=== PATIENT | male | born 1950 | race Caucasian/White ===

== ENCOUNTER 2017-11-16 09:28 | Day surgery (SDC) | payer MEDICARE, OTHER ==
[2017-11-16] MEDS ORDERED: Lactated Ringers 1,000 ML IV ONE (09:29)
[2017-11-16 10:24] LABS: Hematocrit 44.3 % (42-50); Hemoglobin 14.6 gm/dl (12.5-18.0); Mean Cell Volume 84.2 fl (78-100); Mean Corpuscular Hemoglobin 27.8 pg (26-32); Mean Platelet Volume 8.9 fl (6-9.5); Platelet Count 282 K/mm3 (150-450); Red Blood Count 5.26 M/mm3 (4.1-5.6); Red Cell Distribution Width 13.8 % (11.5-14.0); White Blood Count 14.4 K/mm3 (4.0-10.5)
[2017-11-16 10:40] LABS: INR 1.1 (0.8-3.0)
[2017-11-16 10:43] LABS: PTT 27.8 SECONDS (24.1-36.1)
== END 2017-11-16 11:20 | disposition home or self-care (01) ==
LOC: SDC-PAIN 09:28
PROVIDERS: ATTEND Internal Medicine
DX: D72.829 Elevated white blood cell count, unspecified (principal)
CPT/HCPCS: 36415; 85027; 85610; 85730

== ENCOUNTER 2018-01-04 12:41 | Day surgery (SDC) | payer MEDICARE, OTHER ==
[2018-01-04] MEDS ORDERED: DIPRIVAN 200 MG/20 ML IV ONE (12:42)
[2018-01-04] MEDS ORDERED: Xylocaine 1% Vial 30 ML PF IJ ONE (12:42)
[2018-01-04] MEDS ORDERED: DEXAMETHASONE 10 MG/ML VIAL PF IJ ONE (12:42)
[2018-01-04 13:55] LABS: Hematocrit 40.9 % (42-50); Hemoglobin 13.9 gm/dl (12.5-18.0); Mean Cell Volume 82.8 fl (78-100); Mean Corpuscular Hemoglobin 28.1 pg (26-32); Mean Platelet Volume 9.3 fl (6-9.5); Platelet Count 236 K/mm3 (150-450); Red Blood Count 4.94 M/mm3 (4.1-5.6); Red Cell Distribution Width 13.7 % (11.5-14.0); White Blood Count 8.9 K/mm3 (4.0-10.5)
[2018-01-04 14:18] LABS: INR 1.12 (0.8-3.0)
[2018-01-04 14:21] LABS: PTT 24.2 SECONDS (24.1-36.1)
[2018-01-04] MEDS ORDERED: Lactated Ringers 1,000 ML IV ONE (14:53)
--- NOTE | 2018-01-04 16:28 | XRAY ---
Indication: Right L4 ANTHONY. Intraoperative fluoroscopy was provided for 22 seconds. Single digital spot image submitted for interpretation demonstrates posterior spinal needle tip projecting over the right L4-L5 facet. Correlate with intraoperative findings/report.
--- NOTE | 2018-01-04 16:40 | XRAY ---
22 seconds fluoroscopy time in surgery for right L4 ANTHONY.
--- NOTE | 2018-01-05 08:38 | OP ---
DATE OF PROCEDURE: 01/04/2018 1508 SURGEON: Jovan Ireland D.O. PREOPERATIVE DIAGNOSES: Degenerative lumbar spine disease, lumbar spondylosis. POSTOPERATIVE DIAGNOSES: Degenerative lumbar spine disease, lumbar spondylosis. PROCEDURE PERFORMED: Right L4 epidural steroid injection under fluoroscopic guidance. DESCRIPTION OF PROCEDURE: The patient was taken to the operating room and laid in the prone position on the table. Skin over the injection site was prepped and draped in sterile fashion. Under fluoroscope bony anatomy at the targeted injection site was visualized. Induction agent was given as per anesthesia while vital signs were monitored. Local anesthetic agent was introduced to anesthetize the skin in the subcutaneous tissue through injection site. Under fluoroscopic guidance a #22-gauge standard spinal needle was advanced into the target epidural space. Local anesthetic agent used is 4 cc of 1% preservative-free lidocaine. The medication used for this epidural steroid injection is preservative-free dexamethasone 2 cc was injected into each of the target epidural space. While the needle was being removed normal saline was simultaneously infiltrated to avoid sterile needle tract. Skin was cleansed with alcohol and then a bandage was applied. The preoperative pain level is 10 out of 10 and postoperative pain level is 0 out of 10. No complications or adverse consequences were observed. The patient was returned to the holding area until stabilized before discharge to home. The patient will be followed up within ten days after the injection for reevaluation.
== END 2018-01-04 15:50 | disposition home or self-care (01) ==
LOC: SDC-PAIN 12:41
PROVIDERS: ATTEND Internal Medicine
DX: M96.1 Postlaminectomy syndrome, not elsewhere classified (principal); M51.36 Other intervertebral disc degeneration, lumbar region; M54.5 Low back pain; M54.16 Radiculopathy, lumbar region
CPT/HCPCS: 36415; 64483; 72020; 77003; 85027; 85610; 85730; J2001; J2704; Q9967; J1100

== ENCOUNTER 2018-07-26 09:17 | Day surgery (SDC) | payer MEDICARE, OTHER ==
[2018-07-26] MEDS ORDERED: DIPRIVAN 200 MG/20 ML IV ONE (09:18)
[2018-07-26] MEDS ORDERED: Depo-Medrol 40 MG/ML IM ONE (09:18)
[2018-07-26] MEDS ORDERED: Xylocaine-Mpf 2% 5 Ml Vial IJ ONE (09:18)
[2018-07-26 11:03] LABS: INR 1.18 (0.8-3.0)
[2018-07-26] MEDS ORDERED: Lactated Ringers 1,000 ML IV ONE (14:50)
--- NOTE | 2018-07-26 16:02 | XRAY ---
9 seconds fluoroscopy time in surgery for L4-5 MBB.
--- NOTE | 2018-07-27 04:18 | XRAY ---
Indication: Bilateral L4-S1 MBB. Comparison: Right L4 epidural steroid injection. Intraoperative fluoroscopy time was utilized for 9 seconds. 2 posterior C-arm images of the lower lumbar spine were obtained. Posterior spinal needle tips are seen projected over the expected course of the left and right L4-S1 nerve roots. Correlate with intraoperative findings/report.
== END 2018-07-26 11:45 | disposition home or self-care (01) ==
LOC: SDC-PAIN 09:17
PROVIDERS: ATTEND Psychiatry & Neurology Pain Medicine
DX: M48.8X6 Other specified spondylopathies, lumbar region (principal)
CPT/HCPCS: 36415; 64493; 64494; 72020; 76000; 85610; J1030; J2704

== ENCOUNTER 2018-11-06 22:29 | Emergency (ER) | payer MEDICARE, OTHER ==
[2018-11-06] MEDS ORDERED: HYDROCODONE-ACETAMIN 2.5-108/5 ML SOLUTION PO STA (23:00)
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
[2018-11-06] MEDS ORDERED: HYDROCODONE-ACETAMIN 2.5-108/5 ML SOLUTION ONE (23:06)
[2018-11-06 23:16] LABS: Lactic Acid 1.6 (0.4-2.0); VBG BASE EXCESS 8.5 (-2.0-2.0); VBG CARBOXYHEMOGLOBIN 2.5 % T HGB (0.0-6.9); VBG HCO3- 33.4 meq/L (22-28); VBG HEMOGLOBIN 10.7; VBG POTASSIUM 4.4 (3.5-5.1); VBG pH 7.46 (7.32-7.42)
[2018-11-06 23:25] LABS: BASOPHIL % 0.3 % (0.0-0.4); Basophil (Absolute #) 0.04 (0-0.4); Eosinophil % 0.4 % (0.00-5.0); Eosinophil (Absolute #) 0.06 (0-0.5); Granulocyte Absolute (ANC) 11.52 (1.4-6.9); Granulocytes % 85.8 % (36.0-66.0); Hematocrit 31.6 % (42-50); Hemoglobin 10.1 gm/dl (12.5-18.0); Lymphocytes % 8.2 % (24.0-44.0); Mean Cell Volume 90.5 fl (78-100); Mean Corpuscular Hemoglobin 28.9 pg (26-32); Mean Platelet Volume 8.4 fl (6-9.5); Monocyte (Absolute #) 0.71 (0.0-1.3); Monocytes % 5.3 % (0.0-12.0); Platelet Count 208 K/mm3 (150-450); Red Blood Count 3.49 M/mm3 (4.1-5.6); Red Cell Distribution Width 13.1 % (11.5-14.0); White Blood Count 13.4 K/mm3 (4.0-10.5)
[2018-11-06 23:31] LABS: INR 1.33 (0.8-3.0); PROTIME 15.5 SECONDS (8.83-12.87)
[2018-11-06 23:57] LABS: INFLUENZA A NEGATIVE (NEGATIVE); INFLUENZA B NEGATIVE (NEGATIVE); RESPIRATORY SYNCTIAL VIRUS NEGATIVE (Negative)
[2018-11-07] MEDS ORDERED: ROCEPHIN 1 Gm-D5w 50 ml Bag** 1 G/50 ML IVPB IV STA (01:31)
[2018-11-07] MEDS ORDERED: ROCEPHIN 1 Gm-D5w 50 ml Bag** 1 G/50 ML IVPB IV ONE (01:33)
[2018-11-07 02:16] VITALS: BP 172/72; PULSE 91; O2SAT 97
--- NOTE | 2018-11-07 08:52 | XRAY ---
Indication: Short of breath, cough, and fever. Status post bronchoscopy with biopsy. Multiple contiguous axial images obtained through the chest without contrast. Comparison: None Mild pulmonary emphysema. Right middle lobe air space disease with patchy consolidations. Posterior right upper lobe noncalcified micronodules, largest 6 mm. Left lower lobe calcified granuloma. Mild bibasilar atelectasis/scarring. No effusion. Heart is not enlarged with tiny pericardial effusion/thickening. Aorta minimally atherosclerotic without aneurysm. Subcarinal and left perihilar calcified nodes. No pathologic mediastinal lymphadenopathy. Bony thorax intact with flowing osteophytes throughout the spine. Limited upper abdomen demonstrates mild fatty liver, hepatic/splenic calcified granulomas, and cholecystectomy clips. Also benign appearing right adrenal calcifications unchanged with respect to CT abdomen February 12, 2009. Impression: 1. Right middle lobe airspace disease with patchy consolidations. Rule out pneumonia. 2. Right upper lobe noncalcified micronodules possibly granulomatous as there is evidence for old granulomatous disease elsewhere. Comparison studies would be of benefit if performed elsewhere. 3. Incidental mild fatty liver and benign appearing right adrenal calcifications. Comment: Preliminary interpretation was made by [facility]. No critical discrepancy. CT DI 21.12
== END 2018-11-07 02:16 | disposition home or self-care (01) ==
LOC: ED 22:29
DX: J18.9 Pneumonia, unspecified organism (principal); J44.9 Chronic obstructive pulmonary disease, unspecified; I10 Essential (primary) hypertension; R55 Syncope and collapse; Z79.01 Long term (current) use of anticoagulants; Z79.899 Other long term (current) drug therapy; Z86.73 Personal history of transient ischemic attack (TIA), and cerebral infarction without residual deficits
CPT/HCPCS: 36415; 71250; 82805; 83605; 83880; 84484; 85025; 85610; 87040; 87631; 93005; 93041; 96365; 99285; J0696; A9270-GY

== ENCOUNTER 2020-03-10 21:57 | Emergency (ER) | payer MEDICARE, OTHER ==
[2020-03-10] MEDS ORDERED: TORAdol 30 mg Injection IV ONE (22:04)
[2020-03-10] MEDS ORDERED: Sodium Chloride 0.9% 1000 ML 1,000 ML IV STA (22:04)
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
[2020-03-10] MEDS ORDERED: Sodium Chloride 0.9% 1000 ML 1,000 ML ONE (22:30)
[2020-03-10] MEDS ORDERED: TORAdol 30 mg Injection ONE (22:30)
[2020-03-10 22:36] LABS: Absolute Neutrophil Ct (ANC) 9.22 (1.4-6.9); BASOPHIL % 0.3 % (0.0-0.4); Basophil (Absolute #) 0.04 (0-0.4); Eosinophil (Absolute #) 0 (0-0.5); Hematocrit 36.7 % (42-50); Hemoglobin 11.5 gm/dl (12.5-18.0); Lymphocyte (Absolute #) 0.95 (1.0-4.6); Lymphocytes % 8.2 % (24.0-44.0); Mean Cell Volume 85.7 fl (78-100); Mean Corpuscular Hemoglobin 26.9 pg (26-32); Mean Corpuscular Hgb Concent. 31.3 g/dl (32-36); Mean Platelet Volume 8.4 fl (7.5-11.0); Monocyte (Absolute #) 1.35 (0.0-1.3); Monocytes % 11.7 % (0.0-12.0); Neutrophil % 79.8 % (36.0-66.0); Platelet Count 263 K/mm3 (150-450); Red Blood Count 4.28 M/mm3 (4.1-5.6); Red Cell Distribution Width 13.1 % (11.5-14.0); White Blood Count 11.6 K/mm3 (4.0-10.5)
[2020-03-10 22:52] LABS: Appearance CLEAR (CLEAR); Bacteria RARE /HPF (NEGATIVE); Bilirubin NEGATIVE (NEGATIVE); Blood SMALL Ery/ul (0-5); Glucose NEGATIVE (NEGATIVE); Ketones NEGATIVE (NEGATIVE); Leukocyte Esterase NEGATIVE (NEGATIVE); Mucus SLIGHT /HPF (NEGATIVE); Nitrite NEGATIVE (NEGATIVE); Protein,Urine Dip 100 (Negative); Specific Gravity 1.016 (1.005-1.025); Urobilinogen 4 mg/dL (0-1)
[2020-03-10 23:04] LABS: ALBUMIN 4.1 g/dL (3.5-5.0); ALKALINE PHOSPHATASE 90 U/L (38-126); ANION GAP 14.1 MEQ/L (5-15); BLOOD UREA NITROGEN 16 mg/dL (9-20); CHLORIDE 95 mmol/L (98-107); Calcium 9.3 mg/dL (8.4-10.2); Carbon Dioxide 30 mmol/L (22-30); Creatinine 1 1.07 mg/dL (0.66-1.25); Glucose 128 mg/dL (74-106); Potassium 4.4 mmol/L (3.5-5.1); SGOT/AST 20 U/L (17-59); SGPT/ALT 18 U/L (0-50); SODIUM 134 mmol/L (137-145); Total Protein 7.4 g/dL (6.3-8.2)
[2020-03-10 23:17] LABS: LIPASE < 10 U/L (23-300)
[2020-03-11] MEDS ORDERED: MORPHINE SULFATE 4 MG INJ IV ONE (00:05)
[2020-03-11] MEDS ORDERED: MORPHINE SULFATE 4 MG INJ ONE (00:06)
[2020-03-11 00:31] LABS: INR 2.25 (0.8-3.0); PROTIME 25.6 SECONDS (8.83-12.87)
--- NOTE | 2020-03-11 08:57 | XRAY ---
Indication: Bilateral flank pain. Fever. Multiple contiguous images obtained through the abdomen and pelvis without contrast as ordered. Comparison: February 12, 2009. Lung bases demonstrates stable left base calcified granuloma and minimal bibasilar fibrosis/scarring. No infiltrate or effusion. Heart is not enlarged. Images through the pelvis again degraded by beam artifact from multiple bilateral pelvic fixation hardware and right hip arthroplasty. Noncontrasted stomach and bowel loops nonobstructed. Normal appendix. There are scattered colonic diverticulosis throughout the left hemicolon. No free fluid/air. Interval cholecystectomy. Inferior right lobe of the liver demonstrates dropped cholecystectomy clip with tiny 1.6 cm fluid collection and faint calcification presumed postsurgical. Spleen again demonstrates a few calcified granulomas. Stable right adrenal microcalcification favored to be benign given stability over the years. Remaining liver, pancreas, spleen, adrenal glands, kidneys, ureters, and bladder appear unremarkable for noncontrast exam. There remains mild scattered aortoiliac calcifications without AAA. Osseous structures intact again mild degenerative changes throughout the thoracolumbar spine. Impression: 1. Again old bilateral pelvic bone fractures and right hip arthroplasty with hardware beam artifact. 2. Interval cholecystectomy. Cholecystectomy clip with tiny fluid collection and faint calcification inferior right lobe liver presumed postsurgical. 3. Colonic diverticulosis without diverticulitis. 4. Stable benign right adrenal microcalcification and evidence for old granulomatous disease. Comment: Preliminary interpretation was made by [facility]. No critical discrepancy.
--- NOTE | 2020-03-11 09:01 | XRAY ---
Indication: Short of breath. Current Coumadin therapy for left leg DVT. Comparison: November 28, 2017. Portable chest now demonstrates minimal bibasilar atelectasis/scarring with stable left base calcified granuloma. Heart is not enlarged. Bony thorax intact again with old left clavicle fracture. No acute findings. Comment: Preliminary interpretation was made by [facility]. No critical discrepancy.
[2020-03-11 12:36] VITALS: BP 165/67; PULSE 76; O2SAT 99
== END 2020-03-11 13:10 | disposition short-term general hospital (02) ==
LOC: ED 21:57
DX: R10.9 Unspecified abdominal pain (principal); R06.02 Shortness of breath; T14.8XXA Other injury of unspecified body region, initial encounter
CPT/HCPCS: 36000; 36415; 71045; 74176; 80053; 81001; 83605; 83690; 84484; 85025; 85610; 85730; 87040; 87086; 93005; 96360; 96361; 96374; 96375; 99285; J1885; J2270

== ENCOUNTER 2022-02-17 12:30 | Day surgery (SDC) | payer MEDICARE, OTHER ==
[2022-02-17] MEDS ORDERED: Sodium Chloride 0.9(Preservative Free) 10 ML IJ ONE (12:31)
[2022-02-17] MEDS ORDERED: Depo-Medrol 40 MG/ML IM ONE (12:31)
[2022-02-17] MEDS ORDERED: DIPRIVAN 200 MG/20 ML IV ONE (13:15)
--- NOTE | 2022-02-17 14:57 | XRAY ---
Indication: Right L3-L5 transforaminal ANTHONY. Intraoperative fluoroscopy provided for 32 seconds. 4 digital spot images submitted for interpretation demonstrates posterior needle tips projecting over the expected right L3 and L4 nerve roots. Small amount of contrast injected for needle tip placement. Correlate with intraoperative findings/report.
--- NOTE | 2022-02-17 14:59 | XRAY ---
32 seconds fluoroscopy time in surgery for right L3-L5 transforaminal ANTHONY.
[2022-02-17] MEDS ORDERED: Lactated Ringers 1,000 ML IV ONE (15:13)
== END 2022-02-17 13:39 | disposition home or self-care (01) ==
LOC: SDC-PAIN 12:30
PROVIDERS: ATTEND Psychiatry & Neurology Pain Medicine
DX: M54.16 Radiculopathy, lumbar region (principal); Z79.899 Other long term (current) drug therapy
CPT/HCPCS: 64483; 64484; 72100; 77003; J1030; J2704; Q9966

== ENCOUNTER 2024-04-17 07:00 | Day surgery (SDC) | payer MEDICARE, OTHER ==
[~2024-04-17 07:00] MED LIST: BETADINE 5% OPHTHALMIC 30 ML OP ONE; MOXIFLOXACIN 4 MG/0.8 ML VIAL IO ONE; TRIAMCINOLONE 15 MG/ML INJ INTRAOP ONE
[2024-04-17] MEDS ORDERED: Epinephrine Preservative Free 1 MG/ML IJ ONE (07:01)
[2024-04-17] MEDS ORDERED: Lactated Ringers 1,000 ML IV ONE (07:21)
[2024-04-17] MEDS: Lactated Ringers 1,000 ML IV SCH (07:39)
[2024-04-17] MEDS: TETRACAINE 0.5% STERI-UNIT SOL OP ONE ×2 (07:51→08:21)
[2024-04-17] MEDS ORDERED: Zofran 4 MG/2 ML VIAL IV PRN (09:15)
[2024-04-17] MEDS ORDERED: DIPRIVAN 200 MG/20 ML IV ONE (09:33)
[2024-04-17 09:54] VITALS: RESP 16; O2SAT 99
[2024-04-17] MEDS: ACETAZOLAMIDE 250 MG TABLET PO ONE (10:01)
[2024-04-17 10:08] VITALS: BP 131/58; PULSE 52
[2024-04-17 10:18] VITALS: TEMP 97
[2024-04-17] MEDS: Ak-Dilate OPHTHALMIC*** 1.065 ML, Cyclogyl 1% OPHTH SOL 1.065 ML, GATIFLOXACIN 0.5% OPH... OP ONE (15:50)
== END 2024-04-17 10:17 | disposition home or self-care (01) ==
LOC: SDC 07:00
PROVIDERS: ATTEND Ophthalmology
DX: H25.812 Combined forms of age-related cataract, left eye (principal)
CPT/HCPCS: 99100; C1780; J0171; J2704; A9270-GY